=== PATIENT | male | born 1965 | race Caucasian/White ===

== ENCOUNTER 2018-08-07 14:51 | Inpatient (IN) | payer OTHER ==
[~2018-08-07] VITALS: Ht 185.4 cm; Wt 100.1 kg
[2018-08-07] MEDS ORDERED: ALBUTEROL/IPRATROPIUM 2.5MG/0.5MG, 3 ML ONE (15:45)
[2018-08-07] MEDS ORDERED: ALBUTEROL/IPRATROPIUM 2.5MG/0.5MG, 3 ML NPPB ONE (16:00)
[2018-08-07] MEDS ORDERED: SODIUM CHLORIDE FLUSH 10ML SYR IVF ONE (16:00)
[2018-08-07 16:03] LABS: MEAN CORPUSCULAR HEMOGLOBIN 31.4 pg (27.5-34.5); MEAN CORPUSCULAR HGB CONC 34.2 g/dL (33.2-36.2); MEAN CORPUSCULAR VOLUME 91.8 fL (81-97); MEAN PLATELET VOLUME 7.9 fL (7.4-10.4); PLATELET COUNT 291 x10^3/uL (130-400); RED BLOOD COUNT 4.28 x10^6/uL (4.38-5.82)
[2018-08-07 16:10] LABS: INTERNATIONAL NORMALIZED RATIO 1.11 (0.93-1.1); PROTHROMBIN TIME 11.4 Seconds (9.6-11.5)
[2018-08-07 16:21] LABS: ALANINE AMINOTRANSFERASE 40 U/L (12-78); ALBUMIN 2.8 g/dL (3.4-5.0); ANION GAP 10 mmol/L (5-15); CALCIUM 8.2 mg/dL (8.5-10.1); CHLORIDE 95 mmol/L (98-107); CREATININE 0.79 mg/dL (0.7-1.3)
[2018-08-07 16:23] LABS: ALKALINE PHOSPHATASE 130 U/L (45-117); BILIRUBIN,TOTAL 0.8 mg/dL (0.2-1.0)
[2018-08-07 16:25] LABS: MD YES
[2018-08-07 16:29] LABS: BAND#(MANUAL) 0.89 x10^3/uL; BANDS%(MANUAL) 5 % (0-7); LYMPH#(MANUAL) 0.89 x10^3/uL (1-3.4); LYMPHS% (MANUAL) 5 % (22-44); MONOS#(MANUAL) 0.89 x10^3/uL (0.3-2.7); MONOS% (MANUAL) 5 % (2-9); SEG#(MANUAL) 15.05 x10^3/uL (1.8-6.8); SEGS% (MANUAL) 85 % (42-75)
[2018-08-07 16:30] LABS: <PLATELET ESTIMATE> ADEQUATE; <PLT MORPHOLOGY> NORMAL PLT MORPH; <RBC MORPHOLOGY> NORMAL; TOXIC GRAN 2+
[2018-08-07] MEDS ORDERED: SODIUM CHLORIDE 0.9% 1,000 ML IV ONE (16:53)
[2018-08-07] MEDS ORDERED: CEFTRIAXONE PMX 1GM/50ML 50 ML ONE (16:55)
[2018-08-07] MEDS ORDERED: CEFTRIAXONE 1,000 MG in SODIUM CHLORIDE 0.9% 50 ML IVPB ONE (17:00)
[2018-08-07] MEDS ORDERED: AZITHROMYCIN 500 MG in SODIUM CHLORIDE 0.9% 250 ML IVPB ONE (17:00)
[2018-08-07] MEDS ORDERED: SODIUM CHLORIDE 0.9% 1,000ML IVBOLUS ONE ×2 (17:00)
[2018-08-07] MEDS ORDERED: ONDANSETRON ODT 4 MG PO PRN (17:30)
[2018-08-07] MEDS ORDERED: IBUPROFEN 600 MG TABLET PO PRN (17:30)
[2018-08-07] MEDS ORDERED: ONDANSETRON 2MG/ML, 2ML IVPush PRN (17:30)
[2018-08-07] MEDS ORDERED: ENALAPRILAT 1.25 MG/ML, 2ML IVPush PRN (17:30)
[2018-08-07] MEDS ORDERED: LABETALOL 5MG/ML, 20ML IVPush PRN (17:30)
[2018-08-07] MEDS ORDERED: MAALOX/HYOSCYAMINE/LIDOCAINE 45 ML BTL ONE (17:57)
[2018-08-07] MEDS ORDERED: CALCIUM CARBONATE 500 MG TAB.CHEW ONE (17:58)
[2018-08-07] MEDS ORDERED: MAALOX/HYOSCYAMINE/LIDOCAINE 45 ML BTL PO ONE (18:00)
[2018-08-07] MEDS: CALCIUM CARBONATE 500 MG TAB.CHEW PO PRN (18:01)
[2018-08-07 18:40] VITALS: BP 136/83
[2018-08-07 18:45] VITALS: BP 136/83
[2018-08-07] MEDS: SODIUM CHLORIDE 0.9% 1,000 ML IV SCH (19:54)
[2018-08-07] MEDS: ACETAMINOPHEN 325 MG TABLET PO PRN (19:54)
[2018-08-07] MEDS: ENOXAPARIN 40 MG/0.4 ML SQ SCH (19:54)
[2018-08-07] MEDS: BENZONATATE 100 MG CAPSULE PO PRN (20:17)
[2018-08-07] MEDS ORDERED: ALBUTEROL SULFATE 2.5 MG/3 ML NPPB PRN (21:30)
[2018-08-08] MEDS: SODIUM CHLORIDE 0.9% 1,000 ML IV SCH ×2 (02:05→12:00)
[2018-08-08 02:09] VITALS: BP 127/84
[2018-08-08] MEDS: CALCIUM CARBONATE 500 MG TAB.CHEW PO PRN ×2 (03:51→10:42)
[2018-08-08 04:46] LABS: CLOSTRIDIUM DIFFICILE ANTIGEN NEGATIVE; CLOSTRIDIUM DIFFICILE TOXIN NEGATIVE (Negative)
[2018-08-08 05:09] LABS: MEAN CORPUSCULAR HEMOGLOBIN 31.6 pg (27.5-34.5); MEAN CORPUSCULAR HGB CONC 34.2 g/dL (33.2-36.2); MEAN CORPUSCULAR VOLUME 92.5 fL (81-97); MEAN PLATELET VOLUME 7.6 fL (7.4-10.4); PLATELET COUNT 241 x10^3/uL (130-400); RED BLOOD COUNT 3.87 x10^6/uL (4.38-5.82); RED CELL DISTRIBUTION WIDTH 13.1 % (9.4-14.8)
[2018-08-08 05:28] LABS: CHLORIDE 103 mmol/L (98-107)
[2018-08-08 05:36] LABS: ALANINE AMINOTRANSFERASE 33 U/L (12-78); ALBUMIN 2.2 g/dL (3.4-5.0); ALKALINE PHOSPHATASE 110 U/L (45-117); ANION GAP 7 mmol/L (5-15); BILIRUBIN,TOTAL 0.6 mg/dL (0.2-1.0); CREATININE 0.66 mg/dL (0.7-1.3); TOTAL PROTEIN 6.1 g/dL (6.4-8.2)
[2018-08-08 05:37] LABS: MD YES
[2018-08-08 05:39] LABS: <PLATELET ESTIMATE> ADEQUATE; <PLT MORPHOLOGY> NORMAL PLT MORPH; <RBC MORPHOLOGY> NORMAL; BAND#(MANUAL) 0.81 x10^3/uL; BANDS%(MANUAL) 5 % (0-7); LYMPH#(MANUAL) 1.78 x10^3/uL (1-3.4); LYMPHS% (MANUAL) 11 % (22-44); MONOS#(MANUAL) 1.46 x10^3/uL (0.3-2.7); MONOS% (MANUAL) 9 % (2-9); SEG#(MANUAL) 12.15 x10^3/uL (1.8-6.8); SEGS% (MANUAL) 75 % (42-75)
[2018-08-08 07:40] VITALS: BP 123/78
[2018-08-08 07:45] VITALS: BP 156/92
[2018-08-08] MEDS: ACETAMINOPHEN 325 MG TABLET PO PRN (10:42)
[2018-08-08] MEDS: methylPREDNISolone SOD SUCC 125 MG/2 ML IVPush SCH ×2 (10:43→17:48)
[2018-08-08] MEDS: ALBUTEROL SULFATE 2.5 MG/3 ML NPPB SCH ×2 (12:30→19:41)
[2018-08-08 13:53] VITALS: BP 125/76
[2018-08-08] MEDS: CEFTRIAXONE PMX 1GM/50ML 50 ML IV SCH (15:35)
[2018-08-08] MEDS: AZITHROMYCIN 500 MG in SODIUM CHLORIDE 0.9% 250 ML IV SCH (16:33)
[2018-08-08] MEDS: ENOXAPARIN 40 MG/0.4 ML SQ SCH (16:33)
[2018-08-08 19:57] VITALS: BP 121/78
[2018-08-08] MEDS: BENZONATATE 100 MG CAPSULE PO PRN (20:03)
[2018-08-09] MEDS: ALBUTEROL SULFATE 2.5 MG/3 ML NPPB SCH ×3 (00:40→11:59)
[2018-08-09 02:39] VITALS: BP 115/75
[2018-08-09] MEDS: methylPREDNISolone SOD SUCC 125 MG/2 ML IVPush SCH (02:44)
[2018-08-09 07:13] VITALS: BP 112/73
[2018-08-09] MEDS: methylPREDNISolone SOD SUCC 40 MG/ML IVPush SCH ×2 (08:40→17:26)
[2018-08-09 08:53] LABS: MEAN CORPUSCULAR HEMOGLOBIN 31.3 pg (27.5-34.5); MEAN CORPUSCULAR HGB CONC 33.7 g/dL (33.2-36.2); MEAN CORPUSCULAR VOLUME 93.1 fL (81-97); MEAN PLATELET VOLUME 7.5 fL (7.4-10.4); PLATELET COUNT 295 x10^3/uL (130-400); RED BLOOD COUNT 4.14 x10^6/uL (4.38-5.82); RED CELL DISTRIBUTION WIDTH 13.3 % (9.4-14.8)
[2018-08-09 09:13] LABS: BANDS%(MANUAL) 4 % (0-7); LYMPHS% (MANUAL) 5 % (22-44); MD YES; MONOS% (MANUAL) 2 % (2-9); SEGS% (MANUAL) 89 % (42-75)
[2018-08-09 09:14] LABS: <PLATELET ESTIMATE> ADEQUATE; <PLT MORPHOLOGY> NORMAL PLT MORPH; <RBC MORPHOLOGY> NORMAL; TOXIC GRAN 2+
[2018-08-09] MEDS: CALCIUM CARBONATE 500 MG TAB.CHEW PO PRN (10:14)
[2018-08-09 13:30] VITALS: BP 116/72
[2018-08-09] MEDS: CEFTRIAXONE PMX 1GM/50ML 50 ML IV SCH (16:02)
[2018-08-09] MEDS: AZITHROMYCIN 500 MG in SODIUM CHLORIDE 0.9% 250 ML IV SCH (17:26)
[2018-08-09] MEDS: ENOXAPARIN 40 MG/0.4 ML SQ SCH (17:26)
[2018-08-09 20:06] VITALS: BP 121/79
[2018-08-10] MEDS: methylPREDNISolone SOD SUCC 40 MG/ML IVPush SCH (01:10)
[2018-08-10 01:26] VITALS: BP 139/85
[2018-08-10] MEDS: CALCIUM CARBONATE 500 MG TAB.CHEW PO PRN (04:15)
[2018-08-10 04:36] LABS: MEAN CORPUSCULAR HEMOGLOBIN 31.6 pg (27.5-34.5); MEAN CORPUSCULAR HGB CONC 33.9 g/dL (33.2-36.2); MEAN CORPUSCULAR VOLUME 93.2 fL (81-97); MEAN PLATELET VOLUME 7.7 fL (7.4-10.4); PLATELET COUNT 341 x10^3/uL (130-400); RED BLOOD COUNT 3.93 x10^6/uL (4.38-5.82)
[2018-08-10 05:06] LABS: MD YES
[2018-08-10 05:07] LABS: <RBC MORPHOLOGY> NORMAL; BAND#(MANUAL) 0.45 x10^3/uL; BANDS%(MANUAL) 2 % (0-7); LYMPHS% (MANUAL) 4 % (22-44); SEG#(MANUAL) 21.15 x10^3/uL (1.8-6.8); SEGS% (MANUAL) 94 % (42-75)
[2018-08-10 05:08] LABS: <PLATELET ESTIMATE> ADEQUATE; <PLT MORPHOLOGY> NORMAL PLT MORPH; TOXIC GRAN 1+
[2018-08-10 07:23] VITALS: BP 125/78
[2018-08-10] MEDS ORDERED: CEFD300C37 PO (08:36)
[2018-08-10] MEDS ORDERED: ALBU6.7H INH (08:36)
[2018-08-10] MEDS ORDERED: CEFDINIR 300 MG CAPSULE PO SCH (09:00)
[2018-08-10 13:20] VITALS: BP 125/78
== END 2018-08-10 16:13 | disposition home or self-care (01) | DRG 871 ==
LOC: ED 15:58 → EDIP 17:28 → 3NE 18:33
PROVIDERS: ADMIT Internal Medicine; ATTEND Internal Medicine
DX: A41.9 Sepsis, unspecified organism (principal); J18.9 Pneumonia, unspecified organism; J96.01 Acute respiratory failure with hypoxia; E43 Unspecified severe protein-calorie malnutrition; E87.1 Hypo-osmolality and hyponatremia; E87.6 Hypokalemia; K21.9 Gastro-esophageal reflux disease without esophagitis; T38.0X5A Adverse effect of glucocorticoids and synthetic analogues, initial encounter; Z68.29 Body mass index [BMI] 29.0-29.9, adult; Z79.899 Other long term (current) drug therapy
CPT/HCPCS: 36415; J7613; J7620; 71046; 80053; 83605; 83735; 84100; 85025; 85610; 85730; 87040; 87070; 87205; 87324; 93005; 94640; G0378; J0456; J0696; J1650; J2920; J2930; J7030; J7050